=== PATIENT | male | born 1955 | race Caucasian/White ===

== ENCOUNTER 2017-07-13 12:37 | Outpatient (CLI) | payer OTHER ==
[~2017-07-13 12:37] MED LIST: ASPI-1265 PO; ATOR-2 PO; CETI-194 PO; HYDR-569 PO; NITR0.4T51 SL
== END 2017-07-13 23:59 | disposition home or self-care (01) ==
LOC: RAD 12:37
PROVIDERS: ATTEND Nurse Practitioner Family
DX: R07.81 Pleurodynia (principal)
CPT/HCPCS: 71101

== ENCOUNTER 2018-02-08 11:44 | Outpatient (CLI) | payer OTHER ==
[~2018-02-08 11:44] MED LIST changes: +HYDR-4383 PO; -HYDR-569 PO
== END 2018-02-08 23:59 | disposition home or self-care (01) ==
LOC: RAD 11:44
PROVIDERS: ATTEND Nurse Practitioner Family
DX: M47.812 Spondylosis without myelopathy or radiculopathy, cervical region (principal); M48.02 Spinal stenosis, cervical region; G89.29 Other chronic pain; Z87.891 Personal history of nicotine dependence; Z72.89 Other problems related to lifestyle
CPT/HCPCS: 72141

== ENCOUNTER 2018-05-10 07:49 | Outpatient (CLI) | payer OTHER | END 2018-05-10 23:59 | disposition home or self-care (01) | LOC: RAD 07:49 | PROVIDERS: ATTEND Nurse Practitioner Family | DX: Z03.89 Encounter for observation for other suspected diseases and conditions ruled out (principal) | CPT/HCPCS: 71101 ==

== ENCOUNTER 2018-06-06 09:56 | Observation (INO) | payer OTHER ==
[~2018-06-06] VITALS: Ht 172.7 cm; Wt 68.2 kg
[2018-06-06] MEDS ORDERED: aspirin 81mg tab.chew PO ONE (10:20)
[2018-06-06 10:27] LABS: BASOPHILS % (AUTO) 0.5 % (0-1); EOSINOPHILS # (AUTO) 0.3 X10'3 (0-0.9); EOSINOPHILS % (AUTO) 3.9 % (0-6); HEMATOCRIT 46.8 % (42.0-52.0); HEMOGLOBIN 15.8 g/dl (14.0-17.9); LYMPHOCYTES # (AUTO) 1.9 X10'3 (1.1-4.8); LYMPHOCYTES % (AUTO) 29.2 % (21-51); MEAN CORPUSCULAR HEMOGLOBIN 30.4 PG (27.0-31.0); MEAN CORPUSCULAR HGB CONC 33.8 g/dL (33.0-36.5); MEAN CORPUSCULAR VOLUME 90.1 FL (78-98); MONOCYTES # (AUTO) 0.6 X10'3 (0-0.9); MONOCYTES % (AUTO) 9.6 % (2-12); NEUTROPHILS # (AUTO) 3.8 X10'3 (1.8-7.7); NEUTROPHILS % (AUTO) 56.8 % (42-75); PLATELET COUNT 213 X10'3 (140-440); RED CELL DISTRIBUTION WIDTH 12.2 % (11.5-14.5); WHITE BLOOD COUNT 6.6 X10'3 (4.5-11.0)
[2018-06-06 10:38] LABS: ALANINE AMINOTRANSFERASE 37 U/L (12-78); ALBUMIN 4.2 G/DL (3.4-5.0); ALBUMIN/GLOBULIN RATIO 1.2 (1.1-1.5); ALKALINE PHOSPHATASE 70 IU/L (46-116); ANION GAP 10 (8-16); ASPARTATE AMINO TRANSFERASE 37 U/L (10-37); BILIRUBIN,TOTAL 0.5 MG/DL (0.1-1.0); BLOOD UREA NITROGEN 11 MG/DL (7-18); BUN/CREATININE RATIO 14.7 (5.4-32.0); CALCIUM 8.8 MG/DL (8.5-10.1); CHLORIDE 102 MMOL/L (99-107); CREATININE 0.75 MG/DL (0.60-1.10); GLUCOSE 97 MG/DL (70-104); POTASSIUM 3.9 MMOL/L (3.5-5.1); SODIUM 140 MMOL/L (135-145); TOTAL CARBON DIOXIDE 28.3 MMOL/L (24-32); TOTAL PROTEIN 7.6 G/DL (6.4-8.2); eGFR > 90 ML/MIN
[2018-06-06] MEDS ORDERED: ATOR40TA PO (11:10)
[2018-06-06] MEDS ORDERED: LISI2.5T2 PO (11:10)
[2018-06-06] MEDS ORDERED: morphine 4 MG/ML inj SYRINge IV PRN (11:40)
[2018-06-06] MEDS ORDERED: acetaminophen 325mg tablet PO PRN (11:40)
[2018-06-06] MEDS ORDERED: magnesium Cl slow-release 64mg tablet PO PRN (11:40)
[2018-06-06] MEDS ORDERED: magnesium 4gm in 100ml NS 100 ML IV PRN (11:40)
[2018-06-06] MEDS ORDERED: potassium Cl 40MEQ/NS 500ml 500 ML IV PRN ×2 (11:40)
[2018-06-06] MEDS ORDERED: magnesium 2GM in 50ml NS 50 ML IV PRN (11:40)
[2018-06-06] MEDS ORDERED: metoclopramide 5 mg/ml inj IV PRN (11:40)
[2018-06-06] MEDS ORDERED: potassium Cl 20 mEq SR tablet PO PRN ×2 (11:40)
[2018-06-06] MEDS ORDERED: aminophylline 250mg/10ml inj. IV PRN (11:45)
[2018-06-06] MEDS ORDERED: metoprolol tartrate 1mg/ml inj IV PRN (11:45)
[2018-06-06] MEDS ORDERED: nitroGLYCERIN 0.4mg SUBLingual tab SL PRN (11:45)
[2018-06-06] MEDS ORDERED: regadenoson 0.4mg/5ml syringe IV PRN (11:45)
--- NOTE | 2018-06-06 12:04 | NUR ---
[facility] called and states that his stress test is going to have to pushed back till tomorrow because he has drank coffee this morning.
[2018-06-06] MEDS ORDERED: NITR0.4T51 SL (12:19)
[2018-06-06 18:00] VITALS: BP 138/73
--- NOTE | 2018-06-06 18:30 | NUR ---
Assumed care of pt at this time report from Jina RAMÍREZ.
[2018-06-06 22:00] VITALS: BP 139/73
[2018-06-07] VITALS (11 sets, daily range): BP systolic 107–136; BP diastolic 68–76
[2018-06-07 06:54] LABS: ALBUMIN 3.9 G/DL (3.4-5.0); ANION GAP 7 (8-16); BLOOD UREA NITROGEN 13 MG/DL (7-18); BUN/CREATININE RATIO 17.1 (5.4-32.0); CALCIUM 9.1 MG/DL (8.5-10.1); CHLORIDE 102 MMOL/L (99-107); CREATININE 0.76 MG/DL (0.60-1.10); GLUCOSE 87 MG/DL (70-104); MAGNESIUM 1.8 MG/DL (1.5-2.4); POTASSIUM 4.5 MMOL/L (3.5-5.1); SODIUM 138 MMOL/L (135-145); TOTAL CARBON DIOXIDE 29.1 MMOL/L (24-32); eGFR > 90 ML/MIN
[2018-06-07 07:38] LABS: BASOPHILS % (AUTO) 0.3 % (0-1); EOSINOPHILS # (AUTO) 0.3 X10'3 (0-0.9); EOSINOPHILS % (AUTO) 2.8 % (0-6); HEMATOCRIT 46.5 % (42.0-52.0); HEMOGLOBIN 15.8 g/dl (14.0-17.9); LYMPHOCYTES # (AUTO) 1.6 X10'3 (1.1-4.8); LYMPHOCYTES % (AUTO) 17.2 % (21-51); MEAN CORPUSCULAR HEMOGLOBIN 30.3 PG (27.0-31.0); MEAN CORPUSCULAR VOLUME 89.1 FL (78-98); MEAN PLATELET VOLUME 9.2 FL (7.4-10.4); MONOCYTES # (AUTO) 1.1 X10'3 (0-0.9); MONOCYTES % (AUTO) 12.4 % (2-12); NEUTROPHILS # (AUTO) 6.1 X10'3 (1.8-7.7); NEUTROPHILS % (AUTO) 67.3 % (42-75); PLATELET COUNT 188 X10'3 (140-440); RED BLOOD COUNT 5.21 X10'6 (4.70-6.10); RED CELL DISTRIBUTION WIDTH 12.9 % (11.5-14.5)
[2018-06-07] MEDS ORDERED: K and/or MAG REPLACEMENT MC SCH (08:00)
[2018-06-07] MEDS ORDERED: aminophylline inj. 10 ML IV ONE (09:16)
[2018-06-07] MEDS ORDERED: regadenoson 0.4mg/5ml syringe IV ONE (09:16)
[2018-06-07] MEDS ORDERED: lisinopril 2.5mg tablet PO SCH (10:35)
[2018-06-07] MEDS ORDERED: nitroGLYCERIN 0.4mg SUBLingual tab SL PRN (10:35)
[2018-06-07] MEDS ORDERED: PANT40TA4 PO (11:27)
[2018-06-07] MEDS ORDERED: NITR0.4T51 SL (11:27)
[2018-06-07] MEDS ORDERED: CARV3.12 PO (11:27)
[2018-06-07] MEDS ORDERED: atorvastatin 20mg tablet PO SCH (21:00)
[2018-06-07] MEDS ORDERED: aspirin 81mg tab.chew PO SCH (21:00)
== END 2018-06-07 12:45 | disposition home or self-care (01) ==
LOC: ER 09:57 → ED HOLD 11:36 → EDBEDREQ 15:34 → ORTHO 4S 18:00
PROVIDERS: ADMIT Internal Medicine; ATTEND Internal Medicine
DX: R07.89 Other chest pain (principal); E78.00 Pure hypercholesterolemia, unspecified; I25.10 Atherosclerotic heart disease of native coronary artery without angina pectoris; E78.5 Hyperlipidemia, unspecified; I10 Essential (primary) hypertension; Z83.3 Family history of diabetes mellitus; Z95.5 Presence of coronary angioplasty implant and graft
CPT/HCPCS: 36415; 71045; 78452; 80048; 80053; 83735; 83880; 84484; 85025; 87070; 93005; 93017; 96374; 99284; A9500; G0378; J0280

== ENCOUNTER 2018-06-10 11:07 | Outpatient (CLI) | payer OTHER ==
[~2018-06-10 11:07] MED LIST changes: -ATOR-2 PO; +ATOR40TA PO; +CARV3.12 PO; -CETI-194 PO; +LISI2.5T2 PO; +PANT40TA4 PO
== END 2018-06-10 23:59 | disposition home or self-care (01) ==
LOC: VAS 11:07
PROVIDERS: ATTEND Internal Medicine Interventional Cardiology
DX: I65.23 Occlusion and stenosis of bilateral carotid arteries (principal); R01.1 Cardiac murmur, unspecified
CPT/HCPCS: 93880

== ENCOUNTER → 2018-06-14 | Outpatient (CLI) | payer OTHER | END | disposition home or self-care (01) | LOC: CARD DIAG 07:37 | PROVIDERS: ATTEND Internal Medicine Interventional Cardiology | DX: I08.1 Rheumatic disorders of both mitral and tricuspid valves (principal); Z79.82 Long term (current) use of aspirin; Z87.891 Personal history of nicotine dependence | CPT/HCPCS: 93306 ==

== ENCOUNTER 2018-07-21 14:01 | Day surgery (SDC) | payer OTHER ==
[2018-07-20 07:59] LABS: BASOPHILS % (AUTO) 0.6 % (0-1); EOSINOPHILS # (AUTO) 0.3 X10'3 (0-0.9); EOSINOPHILS % (AUTO) 4.3 % (0-6); LYMPHOCYTES # (AUTO) 1.8 X10'3 (1.1-4.8); LYMPHOCYTES % (AUTO) 24.6 % (21-51); MEAN CORPUSCULAR HEMOGLOBIN 30.8 PG (27.0-31.0); MEAN CORPUSCULAR HGB CONC 34.8 g/dL (33.0-36.5); MEAN CORPUSCULAR VOLUME 88.5 FL (78-98); MEAN PLATELET VOLUME 8.8 FL (7.4-10.4); MONOCYTES % (AUTO) 13.4 % (2-12); NEUTROPHILS # (AUTO) 4.2 X10'3 (1.8-7.7); NEUTROPHILS % (AUTO) 57.1 % (42-75); PRE OP HEMOGLOBIN 15.7 g/dL (14.0-17.9); PRE OP PLATELET COUNT 209 X10'3 (140-440); RED BLOOD COUNT 5.09 X10'6 (4.70-6.10); RED CELL DISTRIBUTION WIDTH 12.9 % (11.5-14.5)
[2018-07-20 08:11] LABS: BLOOD UREA NITROGEN 9 MG/DL (7-18); BUN/CREATININE RATIO 11.8 (5.4-32.0); CALCIUM 8.9 MG/DL (8.5-10.1); CHLORIDE 103 MMOL/L (99-107); CREATININE 0.76 MG/DL (0.60-1.10); PRE OP ANION GAP 5 (8-16); PRE OP GLUCOSE 100 MG/DL (70-104); PRE OP POTASSIUM 4.2 MMOL/L (3.4-5.1); PRE OP SODIUM 138 MMOL/L (135-145); TOTAL CARBON DIOXIDE 30.4 MMOL/L (24-32); eGFR > 90 ML/MIN
[2018-07-20 08:18] LABS: PRE OP PROTIME 9.9 SECONDS (9.0-12.0)
[2018-07-21] VITALS (8 sets, daily range): BP systolic 96–131; BP diastolic 57–75
[~2018-07-21] VITALS: Ht 172.7 cm; Wt 66.2 kg
[2018-07-21] MEDS ORDERED: ATOR80TA PO (14:19)
[2018-07-21] MEDS ORDERED: normal saline 1,000 ML IV SCH (14:20)
[2018-07-21] MEDS ORDERED: LORazepam 0.5 MG tablet PO PRN (14:20)
[2018-07-21] MEDS ORDERED: diphenhydrAMINE 25mg capsule PO PRN (14:20)
[2018-07-21] MEDS ORDERED: NITR0.4T51 SL (14:24)
[2018-07-21] MEDS ORDERED: EZET10TA14 PO (14:24)
[2018-07-21] MEDS ORDERED: PANT-47 PO (14:24)
[2018-07-21] MEDS ORDERED: MECL-111 PO (14:24)
[2018-07-21] MEDS ORDERED: CARV3.12 PO (14:24)
[2018-07-21] MEDS ORDERED: HYDR-4353 PO (14:24)
[2018-07-21] MEDS ORDERED: CETI-194 PO (14:24)
[2018-07-21] MEDS ORDERED: LIDOcaine/PRILOcaine 5gm cream TP ONE (14:30)
[2018-07-21] MEDS ORDERED: fentaNYL/PF 50MCG/1 ML 2ML syringe ONE (16:29)
[2018-07-21] MEDS ORDERED: midazolam 2 mg/2 ml injection ONE ×2 (16:29→17:03)
[2018-07-21] MEDS ORDERED: LIDOcaine 1% (10mg/ml)w/preservative injection 20ml MDV ONE (16:29)
[2018-07-21] MEDS ORDERED: iohexol 350MG/ML 100ml bottle IV ONE (16:30)
[2018-07-21] MEDS ORDERED: verapamil 2.5 mg/ml inj IV ONE (16:58)
[2018-07-21] MEDS ORDERED: heparin 1,000unit/ml 10ml vial 10 ML ONE (16:58)
[2018-07-21] MEDS ORDERED: nitroGLYCERIN-Tridil 50MG/D5W 250 ML IV ONE (16:58)
[2018-07-21] MEDS ORDERED: OXAZEpam 15mg capsule PO PRN (18:00)
[2018-07-21] MEDS ORDERED: proCHLORperazine 10 MG/2 ml inj IV PRN (18:00)
[2018-07-21] MEDS ORDERED: ondansetron/PF 4mg/2ml inj IV PRN (18:00)
== END 2018-07-21 19:05 | disposition home or self-care (01) ==
LOC: SSTAY O 14:01
PROVIDERS: ATTEND Internal Medicine Interventional Cardiology
DX: I25.10 Atherosclerotic heart disease of native coronary artery without angina pectoris (principal)
CPT/HCPCS: 36415; 80048; 85025; 85610; 85730; 93005; 93458; 99152; 99153; J1644; J2001; J2250; J3010; J7030; Q0163; Q9967; A4620; C1769; J3490

== ENCOUNTER 2018-12-23 07:59 | Outpatient (CLI) | payer OTHER ==
[~2018-12-23 07:59] MED LIST changes: -ATOR40TA PO; +ATOR80TA PO; +CETI-194 PO; +EZET10TA21 PO; +HYDR-4353 PO; -HYDR-4383 PO; +MECL-111 PO; +PANT-47 PO; -PANT40TA4 PO
[2018-12-23 08:46] LABS: BASOPHILS % (AUTO) 0.7 % (0-1); EOSINOPHILS # (AUTO) 0.2 X10'3 (0-0.9); EOSINOPHILS % (AUTO) 3.5 % (0-6); HEMATOCRIT 47.2 % (42.0-52.0); HEMOGLOBIN 15.9 g/dl (14.0-17.9); LYMPHOCYTES # (AUTO) 1.8 X10'3 (1.1-4.8); LYMPHOCYTES % (AUTO) 27.8 % (21-51); MEAN CORPUSCULAR HEMOGLOBIN 30.5 PG (27.0-31.0); MEAN CORPUSCULAR HGB CONC 33.7 g/dL (33.0-36.5); MEAN CORPUSCULAR VOLUME 90.5 FL (78-98); MEAN PLATELET VOLUME 8.4 FL (7.4-10.4); MONOCYTES # (AUTO) 0.8 X10'3 (0-0.9); MONOCYTES % (AUTO) 12.8 % (2-12); NEUTROPHILS # (AUTO) 3.7 X10'3 (1.8-7.7); NEUTROPHILS % (AUTO) 55.2 % (42-75); PLATELET COUNT 223 X10'3 (140-440); RED BLOOD COUNT 5.22 X10'6 (4.70-6.10); RED CELL DISTRIBUTION WIDTH 13.1 % (11.5-14.5); WHITE BLOOD COUNT 6.6 X10'3 (4.5-11.0)
[2018-12-23 09:14] LABS: ALANINE AMINOTRANSFERASE 43 U/L (12-78); ALBUMIN 4.1 G/DL (3.4-5.0); ALBUMIN/GLOBULIN RATIO 1.2 (1.1-1.5); ALKALINE PHOSPHATASE 52 IU/L (46-116); ANION GAP 7 (8-16); ASPARTATE AMINO TRANSFERASE 34 U/L (10-37); BILIRUBIN,TOTAL 0.7 MG/DL (0.1-1.0); BLOOD UREA NITROGEN 11 MG/DL (7-18); BUN/CREATININE RATIO 14.3 (5.4-32.0); CALCIUM 8.8 MG/DL (8.5-10.1); CHLORIDE 105 MMOL/L (99-107); CHOL/HDL RATIO 2.6 (0.00-4.99); CHOLESTEROL 146 MG/DL (0-200); CREATININE 0.77 MG/DL (0.60-1.10); GLUCOSE 87 MG/DL (70-104); HDL CHOLESTEROL 56 MG/DL (35-60); LDL CHOLESTEROL 80 MG/DL (50-100); POTASSIUM 4.5 MMOL/L (3.5-5.1); SODIUM 142 MMOL/L (135-145); TOTAL CARBON DIOXIDE 29.9 MMOL/L (24-32); TOTAL PROTEIN 7.6 G/DL (6.4-8.2); TRIGLYCERIDES 42 MG/DL (20-135); eGFR > 90 ML/MIN
[2018-12-24 08:18] LABS: PSA, ULTRASENSITIVE W/O SERIAL 1.34 ng/mL (0.000-4.000)
[2018-12-24 11:16] LABS: MICROALB/CRT, RATIO 4.3 mg/g creat (0.0-30.0)
== END 2018-12-23 23:59 | disposition home or self-care (01) ==
LOC: LAB 07:59
PROVIDERS: ATTEND Physician Assistant
DX: Z12.5 Encounter for screening for malignant neoplasm of prostate (principal); E78.5 Hyperlipidemia, unspecified; I10 Essential (primary) hypertension; M50.90 Cervical disc disorder, unspecified, unspecified cervical region; M54.2 Cervicalgia; Z87.891 Personal history of nicotine dependence; Z72.89 Other problems related to lifestyle
CPT/HCPCS: 36415; 80053; 80061; 82043; 82570; 84153; 84439; 84443; 85025

== ENCOUNTER 2019-12-04 08:01 | Outpatient (CLI) | payer BC ==
[~2019-12-04 08:01] MED LIST changes: -EZET10TA21 PO; +EZET10TA6 PO; -MECL-111 PO; +MECL-159 PO
[2019-12-04 08:41] LABS: ALANINE AMINOTRANSFERASE 35 U/L (12-78); ALBUMIN/GLOBULIN RATIO 1.2 (1.1-1.5); ALKALINE PHOSPHATASE 53 IU/L (46-116); ANION GAP 7 (8-16); ASPARTATE AMINO TRANSFERASE 29 U/L (10-37); BILIRUBIN,TOTAL 0.9 MG/DL (0.1-1.0); BLOOD UREA NITROGEN 12 MG/DL (7-18); BUN/CREATININE RATIO 14.8 (5.4-32.0); CALCIUM 8.3 MG/DL (8.5-10.1); CHLORIDE 105 MMOL/L (99-107); CHOL/HDL RATIO 2.4 (0.00-4.99); CHOLESTEROL 132 MG/DL (0-200); CREATININE 0.81 MG/DL (0.60-1.10); GLUCOSE 97 MG/DL (70-104); HDL CHOLESTEROL 55 MG/DL (35-60); LDL CHOLESTEROL 70 MG/DL (50-100); POTASSIUM 4.3 MMOL/L (3.5-5.1); SODIUM 140 MMOL/L (135-145); TOTAL CARBON DIOXIDE 28.1 MMOL/L (24-32); TOTAL PROTEIN 7.3 G/DL (6.4-8.2); TRIGLYCERIDES 33 MG/DL (20-135); eGFR > 90 ML/MIN
== END 2019-12-04 23:59 | disposition home or self-care (01) ==
LOC: LAB 08:01
PROVIDERS: ATTEND Internal Medicine Interventional Cardiology
DX: E78.49 Other hyperlipidemia (principal); R06.02 Shortness of breath
CPT/HCPCS: 36415; 80053; 80061

== ENCOUNTER → 2020-01-05 | Outpatient (CLI) | payer BC ==
[2020-01-05 09:56] LABS: BASOPHILS % (AUTO) 0.7 % (0-1); EOSINOPHILS # (AUTO) 0.2 X10'3 (0-0.9); EOSINOPHILS % (AUTO) 3.3 % (0-6); HEMATOCRIT 43.7 % (42.0-52.0); HEMOGLOBIN 14.8 g/dl (14.0-17.9); LYMPHOCYTES # (AUTO) 1.3 X10'3 (1.1-4.8); LYMPHOCYTES % (AUTO) 21.8 % (21-51); MEAN CORPUSCULAR HEMOGLOBIN 30.3 PG (27.0-31.0); MEAN CORPUSCULAR HGB CONC 33.8 g/dL (33.0-36.5); MEAN CORPUSCULAR VOLUME 89.5 FL (78-98); MEAN PLATELET VOLUME 8.7 FL (7.4-10.4); MONOCYTES # (AUTO) 0.6 X10'3 (0-0.9); MONOCYTES % (AUTO) 10.7 % (2-12); NEUTROPHILS # (AUTO) 3.8 X10'3 (1.8-7.7); NEUTROPHILS % (AUTO) 63.5 % (42-75); PLATELET COUNT 222 X10'3 (140-440); RED BLOOD COUNT 4.88 X10'6 (4.70-6.10); RED CELL DISTRIBUTION WIDTH 12.7 % (11.5-14.5)
[2020-01-05 10:33] LABS: ALANINE AMINOTRANSFERASE 32 U/L (12-78); ALBUMIN 3.9 G/DL (3.4-5.0); ALBUMIN/GLOBULIN RATIO 1.2 (1.1-1.5); ALKALINE PHOSPHATASE 54 IU/L (46-116); ANION GAP 7 (8-16); ASPARTATE AMINO TRANSFERASE 27 U/L (10-37); BILIRUBIN,TOTAL 0.6 MG/DL (0.1-1.0); BLOOD UREA NITROGEN 10 MG/DL (7-18); CALCIUM 8.6 MG/DL (8.5-10.1); CHLORIDE 102 MMOL/L (99-107); CREATININE 0.91 MG/DL (0.60-1.10); GLUCOSE 141 MG/DL (70-104); POTASSIUM 4.1 MMOL/L (3.5-5.1); SODIUM 137 MMOL/L (135-145); TOTAL CARBON DIOXIDE 27.7 MMOL/L (24-32); TOTAL PROTEIN 7.1 G/DL (6.4-8.2); eGFR 84 ML/MIN
[2020-01-06 13:29] LABS: PSA, ULTRASENSITIVE W/O SERIAL 1.16 ng/mL (0.000-4.000)
== END | disposition home or self-care (01) ==
LOC: LAB 08:05
PROVIDERS: ATTEND Physician Assistant
DX: I10 Essential (primary) hypertension (principal); E78.5 Hyperlipidemia, unspecified; K64.4 Residual hemorrhoidal skin tags; Z12.5 Encounter for screening for malignant neoplasm of prostate
CPT/HCPCS: 36415; 80053; 82043; 82570; 84153; 84439; 84443; 85025

== ENCOUNTER 2020-10-30 06:08 | Outpatient (CLI) | payer BC ==
[2020-10-30 08:34] LABS: BASOPHILS % (AUTO) 0.4 % (0-1); EOSINOPHILS # (AUTO) 0.2 X10'3 (0-0.9); HEMATOCRIT 46.3 % (42.0-52.0); LYMPHOCYTES # (AUTO) 1.7 X10'3 (1.1-4.8); LYMPHOCYTES % (AUTO) 20.6 % (21-51); MEAN CORPUSCULAR HEMOGLOBIN 30.2 PG (27.0-31.0); MEAN CORPUSCULAR HGB CONC 34.6 g/dL (33.0-36.5); MEAN CORPUSCULAR VOLUME 87.2 FL (78-98); MEAN PLATELET VOLUME 8.6 FL (7.4-10.4); MONOCYTES % (AUTO) 12.3 % (2-12); NEUTROPHILS # (AUTO) 5.4 X10'3 (1.8-7.7); NEUTROPHILS % (AUTO) 64.7 % (42-75); PLATELET COUNT 211 X10'3 (140-440); RED BLOOD COUNT 5.31 X10'6 (4.70-6.10); RED CELL DISTRIBUTION WIDTH 12.6 % (11.5-14.5); WHITE BLOOD COUNT 8.4 X10'3 (4.5-11.0)
[2020-10-30 09:29] LABS: ALANINE AMINOTRANSFERASE 34 U/L (12-78); ALBUMIN/GLOBULIN RATIO 1.1 (1.1-1.5); ALKALINE PHOSPHATASE 61 IU/L (46-116); ANION GAP 14 (8-16); ASPARTATE AMINO TRANSFERASE 24 U/L (10-37); BILIRUBIN,TOTAL 0.9 MG/DL (0.1-1.0); BLOOD UREA NITROGEN 12 MG/DL (7-18); BUN/CREATININE RATIO 14.8 (5.4-32.0); CALCIUM 8.6 MG/DL (8.5-10.1); CHLORIDE 101 MMOL/L (99-107); CHOL/HDL RATIO 3.2 (0.00-4.99); CHOLESTEROL 162 MG/DL (0-200); CREATININE 0.81 MG/DL (0.60-1.10); GLUCOSE 105 MG/DL (70-104); HDL CHOLESTEROL 51 MG/DL (35-60); LDL CHOLESTEROL 99 MG/DL (50-100); SODIUM 140 MMOL/L (135-145); TOTAL CARBON DIOXIDE 24.6 MMOL/L (24-32); TOTAL PROTEIN 7.6 G/DL (6.4-8.2); TRIGLYCERIDES 86 MG/DL (20-135); eGFR > 90 ML/MIN
[2020-10-31 19:31] LABS: MICROALB/CRT, RATIO 4 mg/g creat (0-29)
== END 2020-10-30 23:59 | disposition home or self-care (01) ==
LOC: LAB 06:08
PROVIDERS: ATTEND Physician Assistant
DX: E78.5 Hyperlipidemia, unspecified (principal); R53.83 Other fatigue; I10 Essential (primary) hypertension; R42 Dizziness and giddiness; G47.00 Insomnia, unspecified
CPT/HCPCS: 36415; 80053; 80061; 82043; 82570; 84402; 84403; 84439; 84443; 85025

== ENCOUNTER → 2020-11-15 | Outpatient (CLI) | payer BC | END | disposition home or self-care (01) | LOC: CARD DIAG 09:46 | PROVIDERS: ATTEND Physician Assistant | DX: I08.1 Rheumatic disorders of both mitral and tricuspid valves (principal) | CPT/HCPCS: 93306 ==

== ENCOUNTER 2021-01-07 09:15 | Outpatient (CLI) | payer BC ==
[~2021-01-07 09:15] MED LIST changes: +LISI2.5T14 PO; -LISI2.5T2 PO
== END 2021-01-07 23:59 | disposition home or self-care (01) ==
LOC: LAB 09:15
PROVIDERS: ATTEND Physician Assistant
DX: Z12.5 Encounter for screening for malignant neoplasm of prostate (principal); M19.012 Primary osteoarthritis, left shoulder
CPT/HCPCS: 36415; 73030; 84153

== ENCOUNTER 2021-01-15 09:38 | Outpatient (CLI) | payer BC | END 2021-01-15 23:59 | disposition home or self-care (01) | LOC: RAD 09:38 | PROVIDERS: ATTEND Family Medicine | DX: M75.102 Unspecified rotator cuff tear or rupture of left shoulder, not specified as traumatic (principal); M19.012 Primary osteoarthritis, left shoulder; M25.619 Stiffness of unspecified shoulder, not elsewhere classified | CPT/HCPCS: 73221 ==

== ENCOUNTER 2021-04-28 05:58 | Day surgery (SDC) | payer BC ==
[2021-04-22 12:16] LABS: BASOPHILS % (AUTO) 0.7 % (0-1); EOSINOPHILS # (AUTO) 0.3 X10'3 (0-0.9); EOSINOPHILS % (AUTO) 4.6 % (0-6); LYMPHOCYTES # (AUTO) 1.7 X10'3 (1.1-4.8); LYMPHOCYTES % (AUTO) 24.7 % (21-51); MEAN CORPUSCULAR HEMOGLOBIN 30.5 PG (27.0-31.0); MEAN CORPUSCULAR HGB CONC 34.4 g/dL (33.0-36.5); MEAN CORPUSCULAR VOLUME 88.4 FL (78-98); MEAN PLATELET VOLUME 8.5 FL (7.4-10.4); MONOCYTES # (AUTO) 0.8 X10'3 (0-0.9); MONOCYTES % (AUTO) 11.8 % (2-12); NEUTROPHILS # (AUTO) 3.9 X10'3 (1.8-7.7); NEUTROPHILS % (AUTO) 58.2 % (42-75); PRE OP HEMATOCRIT 44.9 % (42.0-52.0); PRE OP HEMOGLOBIN 15.5 g/dL (14.0-17.9); PRE OP PLATELET COUNT 243 X10'3 (140-440); RED BLOOD COUNT 5.08 X10'6 (4.70-6.10); RED CELL DISTRIBUTION WIDTH 12.9 % (11.5-14.5)
[2021-04-22 13:22] LABS: ALBUMIN/GLOBULIN RATIO 1.1 (1.1-1.5); ALKALINE PHOSPHATASE 61 IU/L (46-116); BLOOD UREA NITROGEN 14 MG/DL (7-18); BUN/CREATININE RATIO 16.9 (5.4-32.0); CALCIUM 9.2 MG/DL (8.5-10.1); CHLORIDE 102 MMOL/L (99-107); CREATININE 0.83 MG/DL (0.60-1.10); PRE OP ALT 35 U/L (30-65); PRE OP ANION GAP 8 (8-16); PRE OP AST 28 U/L (10-37); PRE OP BILIRUB, TOTAL 0.6 MG/DL (0.0-1.0); PRE OP GLUCOSE 130 MG/DL (70-104); PRE OP POTASSIUM 4.3 MMOL/L (3.4-5.1); PRE OP SODIUM 140 MMOL/L (135-145); TOTAL CARBON DIOXIDE 30.1 MMOL/L (24-32); TOTAL PROTEIN 7.5 G/DL (6.4-8.2); eGFR > 90 ML/MIN
[2021-04-28] VITALS (10 sets, daily range): BP systolic 129–155; BP diastolic 74–91
[~2021-04-28] VITALS: Ht 175.3 cm; Wt 70.3 kg
[~2021-04-28 05:58] MED LIST changes: -CARV3.12 PO; -CETI-194 PO; -EZET10TA6 PO; -MECL-159 PO; -NITR0.4T51 SL; -PANT-47 PO; +ZET10T PO; +cefazolin/dext.iso 2gm/50ml IV ONE; +famotidine 20mg tablet PO ONE; +ringers solution, lacted 1,000 ML IV SCH
[2021-04-28] MEDS ORDERED: BUPIVAcaine/PF 2.5 mg/ml (0.25%) 30ml vial ONE (07:46)
[2021-04-28] MEDS ORDERED: midazolam 1 mg/ML 2ml injection ONE (08:33)
[2021-04-28] MEDS ORDERED: fentaNYL/PF 50MCG/1 ML 2ML syringe ONE ×2 (08:33→10:02)
[2021-04-28] MEDS ORDERED: propofol inj 20 ML IV ONE (08:37)
[2021-04-28] MEDS ORDERED: LIDOcaine 1%/PF 5ML 10 MG/ML VIAL ONE (08:37)
[2021-04-28] MEDS ORDERED: ROPIVAcaine 0.5% (5mg/ml) 30ml vial ONE (08:37)
[2021-04-28] MEDS ORDERED: sevoflurane 250ml liquid IH ONE (08:38)
[2021-04-28] MEDS ORDERED: dexamethasone sod phosphate 4mg/ml inj. ONE (09:13)
[2021-04-28] MEDS ORDERED: meperidine/PF 25mg/ml syringe IV PRN ×3 (09:50)
[2021-04-28] MEDS ORDERED: ringers solution, lacted 1,000 ML IV SCH (09:50)
[2021-04-28] MEDS ORDERED: ROPIVAcaine 0.2%/PF PUMP/bolus 545 ML INTERSCALE SCH (09:50)
[2021-04-28] MEDS ORDERED: proCHLORperazine 10 MG/2 ml inj IV PRN (09:50)
[2021-04-28] MEDS ORDERED: ondansetron/PF 4mg/2ml inj IV PRN (09:50)
[2021-04-28] MEDS ORDERED: morphine 2 MG/ML inj. syringe IV PRN (09:50)
[2021-04-28] MEDS ORDERED: morphine 4 MG/ML inj SYRINge IV PRN (09:50)
[2021-04-28] MEDS ORDERED: ROPIVAcaine 0.2% (10 MG/5 ML) BOLUS INJECTION INTERSCALE PRN (09:50)
[2021-04-28] MEDS ORDERED: ondansetron/PF 4mg/2ml inj ONE (10:06)
--- NOTE | 2021-04-28 10:45 | NUR ---
Received from OR via [facility], accompanied by Anesthesiologist DR. BRAXTON and report given by Anesthesiologist. PATIENT WAKING UP, NO S/S OF PAIN, V/S WNL, CSM INTACT, SCD ON, PIV 20G TO RUE, LEFT SHOULDER-WRAP WITH POWDER PAC PRESENT, ARM IN SLING, ABLE TO MOVE FINGERS, SENSATION INTACT.
[2021-04-28] MEDS ORDERED: HYDROcodone/acetaminophen 10/325mg tab PO PRN (10:55)
--- NOTE | 2021-04-28 12:05 | NUR ---
ALL DISCHARGE CRITERIA HAS BEEN MET. VSS, NO PAIN, ON-Q ATTACHED AND STARTED AT 2ML/HR-PT EDUCTED REGARDING USE, LEFT SHOULDER WRAP AND POWDER PAC IN PLACE-DRSG CDI, NO CHANGES IN SENSATION/CSM INTACT, ABLE TO SAFELY AMBULATE AND TRANSFER SELF. IV TAKEN OUT WITHOUT ANY COMPLICATIONS. ALL DISCHARGE INSTRUCTIONS COVERED WITH PATIENT AND ALL QUESTIONS ANSWERED. PATIENT TAKEN OUT VIA WHEELCHAIR TO PERSONAL VEHICLE WHERE FAMILY/FRIEND DROVE PATIENT HOME.
== END 2021-04-28 12:05 | disposition home or self-care (01) ==
LOC: PAS 05:58 → EDSTATUS 08:45 → PAS 12:05
PROVIDERS: ATTEND Orthopaedic Surgery
DX: S46.012A Strain of muscle(s) and tendon(s) of the rotator cuff of left shoulder, initial encounter (principal); M75.52 Bursitis of left shoulder; I10 Essential (primary) hypertension; E78.00 Pure hypercholesterolemia, unspecified; I25.10 Atherosclerotic heart disease of native coronary artery without angina pectoris; M19.012 Primary osteoarthritis, left shoulder; Z87.891 Personal history of nicotine dependence; Z72.89 Other problems related to lifestyle; Z79.899 Other long term (current) drug therapy; Z79.82 Long term (current) use of aspirin; Z95.5 Presence of coronary angioplasty implant and graft; Z20.822 Contact with and (suspected) exposure to COVID-19; X58.XXXA Exposure to other specified factors, initial encounter; Y93.89 Activity, other specified; Y92.89 Other specified places as the place of occurrence of the external cause; Y99.8 Other external cause status
CPT/HCPCS: 29826; 29827; 36415; 64416; 76942; 80053; 82948; 85025; 93005; C1713; J0690; J1100; J2250; J2405; J2704; J2795; J3010; J3490; J7120; U0003; U0005; Z7506; Z7508; Z7512; A4565; A4618; A6449; A7000

== ENCOUNTER 2021-11-28 08:26 | Outpatient (CLI) | payer BC ==
[~2021-11-28 08:26] MED LIST changes: -cefazolin/dext.iso 2gm/50ml IV ONE; -famotidine 20mg tablet PO ONE; -ringers solution, lacted 1,000 ML IV SCH
[2021-11-28 09:01] LABS: BASOPHILS # (AUTO) 0.1 X10'3 (0-0.2); BASOPHILS % (AUTO) 0.6 % (0-1); EOSINOPHILS # (AUTO) 0.2 X10'3 (0-0.9); HEMATOCRIT 46.8 % (42.0-52.0); HEMOGLOBIN 15.8 g/dl (14.0-17.9); LYMPHOCYTES # (AUTO) 1.9 X10'3 (1.1-4.8); LYMPHOCYTES % (AUTO) 22.8 % (21-51); MEAN CORPUSCULAR HGB CONC 33.8 g/dL (33.0-36.5); MEAN PLATELET VOLUME 8.4 FL (7.4-10.4); MONOCYTES % (AUTO) 11.5 % (2-12); NEUTROPHILS # (AUTO) 5.3 X10'3 (1.8-7.7); NEUTROPHILS % (AUTO) 63.1 % (42-75); PLATELET COUNT 240 X10'3 (140-440); RED BLOOD COUNT 5.25 X10'6 (4.70-6.10); RED CELL DISTRIBUTION WIDTH 13.2 % (11.5-14.5); WHITE BLOOD COUNT 8.4 X10'3 (4.5-11.0)
[2021-11-28 09:22] LABS: ANION GAP 9 (8-16); BLOOD UREA NITROGEN 15 MG/DL (7-18); BUN/CREATININE RATIO 18.3 (5.4-32.0); CHLORIDE 102 MMOL/L (99-107); CREATININE 0.82 MG/DL (0.60-1.10); GLUCOSE 90 MG/DL (70-104); POTASSIUM 4.2 MMOL/L (3.5-5.1); SODIUM 140 MMOL/L (135-145); TOTAL CARBON DIOXIDE 29.3 MMOL/L (24-32)
[2021-11-28 09:23] LABS: ALANINE AMINOTRANSFERASE 33 U/L (12-78); ALBUMIN 4.1 G/DL (3.4-5.0); ALBUMIN/GLOBULIN RATIO 1.1 (1.1-1.5); ALKALINE PHOSPHATASE 65 IU/L (46-116); ASPARTATE AMINO TRANSFERASE 22 U/L (10-37); BILIRUBIN,TOTAL 0.7 MG/DL (0.1-1.0); CALCIUM 8.8 MG/DL (8.5-10.1); CHOL/HDL RATIO 2.8 (0.00-4.99); CHOLESTEROL 158 MG/DL (0-200); HDL CHOLESTEROL 57 MG/DL (35-60); LDL CHOLESTEROL 85 MG/DL (50-100); TOTAL PROTEIN 7.7 G/DL (6.4-8.2); TRIGLYCERIDES 33 MG/DL (20-135); eGFR > 90 ML/MIN
[2021-11-29 09:29] LABS: PSA, ULTRASENSITIVE W/O SERIAL 1.02 ng/mL (0.000-4.000)
== END 2021-11-28 23:59 | disposition home or self-care (01) ==
LOC: LAB 08:26
PROVIDERS: ATTEND Physician Assistant
DX: Z12.5 Encounter for screening for malignant neoplasm of prostate (principal); E78.5 Hyperlipidemia, unspecified; I10 Essential (primary) hypertension; I25.10 Atherosclerotic heart disease of native coronary artery without angina pectoris; R53.83 Other fatigue
CPT/HCPCS: 36415; 80053; 80061; 82306; 84153; 84410; 84439; 84443; 85025

== ENCOUNTER 2022-07-10 08:18 | Outpatient (CLI) | payer SELFPAY | END 2022-07-10 23:59 | disposition home or self-care (01) | LOC: VAS 08:18 | DX: Z13.6 Encounter for screening for cardiovascular disorders (principal) ==

== ENCOUNTER 2022-07-22 08:05 | Outpatient (CLI) | payer BC ==
[2022-07-22 08:42] LABS: BASOPHILS % (AUTO) 0.4 % (0-1); EOSINOPHILS # (AUTO) 0.4 X10'3 (0-0.9); EOSINOPHILS % (AUTO) 4.5 % (0-6); HEMATOCRIT 46.5 % (42.0-52.0); HEMOGLOBIN 15.7 g/dl (14.0-17.9); LYMPHOCYTES % (AUTO) 23.3 % (21-51); MEAN CORPUSCULAR HGB CONC 33.8 g/dL (33.0-36.5); MEAN CORPUSCULAR VOLUME 88.8 FL (78-98); MEAN PLATELET VOLUME 8.5 FL (7.4-10.4); MONOCYTES % (AUTO) 11.9 % (2-12); NEUTROPHILS # (AUTO) 5.2 X10'3 (1.8-7.7); NEUTROPHILS % (AUTO) 59.9 % (42-75); PLATELET COUNT 208 X10'3 (140-440); RED BLOOD COUNT 5.23 X10'6 (4.70-6.10); RED CELL DISTRIBUTION WIDTH 13.1 % (11.5-14.5); WHITE BLOOD COUNT 8.7 X10'3 (4.5-11.0)
[2022-07-22 08:54] LABS: ALANINE AMINOTRANSFERASE 34 U/L (12-78); ALBUMIN 4.1 G/DL (3.4-5.0); ALBUMIN/GLOBULIN RATIO 1.3 (1.1-1.5); ALKALINE PHOSPHATASE 64 IU/L (46-116); ANION GAP 9 (8-16); ASPARTATE AMINO TRANSFERASE 30 U/L (10-37); BLOOD UREA NITROGEN 17 MG/DL (7-18); BUN/CREATININE RATIO 20.5 (10.0-20.0); CALCIUM 8.9 MG/DL (8.5-10.1); CHLORIDE 101 MMOL/L (99-107); CHOLESTEROL 166 MG/DL (0-200); CREATININE 0.83 MG/DL (0.60-1.10); GLUCOSE 100 MG/DL (70-104); HDL CHOLESTEROL 55 MG/DL (35-60); LDL CHOLESTEROL 96 MG/DL (50-100); POTASSIUM 4.6 MMOL/L (3.5-5.1); SODIUM 138 MMOL/L (135-145); TOTAL CARBON DIOXIDE 27.9 MMOL/L (24-32); TOTAL PROTEIN 7.3 G/DL (6.4-8.2); TRIGLYCERIDES 50 MG/DL (20-135); eGFR > 90 ML/MIN
== END 2022-07-22 23:59 | disposition home or self-care (01) ==
LOC: CARD DIAG 08:05
PROVIDERS: ATTEND Internal Medicine Interventional Cardiology
DX: I25.118 Atherosclerotic heart disease of native coronary artery with other forms of angina pectoris (principal); I08.3 Combined rheumatic disorders of mitral, aortic and tricuspid valves; R06.02 Shortness of breath; E78.49 Other hyperlipidemia; I10 Essential (primary) hypertension
CPT/HCPCS: 36415; 80053; 80061; 84153; 85025; 93306

== ENCOUNTER 2022-07-29 08:50 | Outpatient (CLI) | payer BC ==
[~2022-07-29] VITALS: Ht 175.3 cm; Wt 70.0 kg
[2022-07-29] VITALS (7 sets, daily range): BP systolic 129–151; BP diastolic 69–76
[2022-07-29] MEDS ORDERED: regadenoson 0.4mg/5ml syringe IV ONE (09:50)
[2022-07-29] MEDS ORDERED: aminophylline 250mg/10ml inj. IV PRN (09:50)
[2022-07-29] MEDS ORDERED: nitroGLYCERIN 0.4mg SUBLingual tab SL PRN (09:50)
[2022-07-29] MEDS ORDERED: normal saline 500ml IV soln 500 ML IV ONE (09:50)
== END 2022-07-29 23:59 | disposition home or self-care (01) ==
LOC: RAD 08:50
PROVIDERS: ATTEND Internal Medicine Interventional Cardiology
DX: I25.118 Atherosclerotic heart disease of native coronary artery with other forms of angina pectoris (principal)
CPT/HCPCS: 78452; 93017; A9500; J2785; J7040

== ENCOUNTER 2023-02-03 07:58 | Outpatient (CLI) | payer BC ==
[~2023-02-03 07:58] MED LIST changes: +EZET10TA7 PO; +LANS30TA4 PO; +ONDA4TAB12 PO; -ZET10T PO
[2023-02-03 08:53] LABS: BASOPHILS # (AUTO) 0.1 X10'3 (0-0.2); BASOPHILS % (AUTO) 0.9 % (0-1); EOSINOPHILS # (AUTO) 0.4 X10'3 (0-0.9); HEMATOCRIT 47.8 % (42.0-52.0); HEMOGLOBIN 16.2 g/dl (14.0-17.9); LYMPHOCYTES # (AUTO) 1.6 X10'3 (1.1-4.8); LYMPHOCYTES % (AUTO) 24.9 % (21-51); MEAN CORPUSCULAR HEMOGLOBIN 30.5 PG (27.0-31.0); MEAN CORPUSCULAR HGB CONC 33.9 g/dL (33.0-36.5); MEAN PLATELET VOLUME 8.5 FL (7.4-10.4); MONOCYTES # (AUTO) 0.8 X10'3 (0-0.9); MONOCYTES % (AUTO) 12.3 % (2-12); NEUTROPHILS # (AUTO) 3.6 X10'3 (1.8-7.7); NEUTROPHILS % (AUTO) 55.9 % (42-75); PLATELET COUNT 211 X10'3 (140-440); RED BLOOD COUNT 5.32 X10'6 (4.70-6.10); RED CELL DISTRIBUTION WIDTH 13.1 % (11.5-14.5); WHITE BLOOD COUNT 6.4 X10'3 (4.5-11.0)
[2023-02-03 09:34] LABS: ALKALINE PHOSPHATASE 67 IU/L (46-116); ANION GAP 5 (8-16); BILIRUBIN,TOTAL 0.8 MG/DL (0.1-1.0); CHLORIDE 103 MMOL/L (99-107); CHOLESTEROL 186 MG/DL (0-200); LDL CHOLESTEROL 112 MG/DL (50-100); POTASSIUM 4.3 MMOL/L (3.5-5.1); SODIUM 139 MMOL/L (135-145); TOTAL CARBON DIOXIDE 30.9 MMOL/L (24-32); TOTAL PROTEIN 7.5 G/DL (6.4-8.2); TRIGLYCERIDES 60 MG/DL (20-135)
[2023-02-03 09:38] LABS: ALANINE AMINOTRANSFERASE 39 U/L (12-78); ALBUMIN/GLOBULIN RATIO 1.1 (1.1-1.5); ASPARTATE AMINO TRANSFERASE 29 U/L (10-37); BLOOD UREA NITROGEN 9 MG/DL (7-18); BUN/CREATININE RATIO 11.1 (10.0-20.0); CREATININE 0.81 MG/DL (0.60-1.10); GLUCOSE 102 MG/DL (70-104); eGFR > 90 ML/MIN
[2023-02-03 10:07] LABS: THYROID STIMULATING HORMONE 1.33 ulU/ml (0.34-4.50)
[2023-02-03 11:16] LABS: CHOL/HDL RATIO 3.4 (0.00-4.99); HDL CHOLESTEROL 55 MG/DL (35-60)
[2023-02-04 20:05] LABS: CREATININE, URINE 133.3 mg/dL (Not Estab.); MICROALBUMIN,U,RANDOM 6.6 ug/mL (Not Estab.)
== END 2023-02-03 23:59 | disposition home or self-care (01) ==
LOC: LAB 07:58
PROVIDERS: ATTEND Physician Assistant
DX: Z00.00 Encounter for general adult medical examination without abnormal findings (principal); E78.5 Hyperlipidemia, unspecified; I10 Essential (primary) hypertension; I25.10 Atherosclerotic heart disease of native coronary artery without angina pectoris; K21.9 Gastro-esophageal reflux disease without esophagitis; R12 Heartburn; Z12.5 Encounter for screening for malignant neoplasm of prostate
CPT/HCPCS: 36415; 80053; 80061; 82043; 82570; 84439; 84443; 85025

== ENCOUNTER 2023-03-02 07:28 | Outpatient (CLI) | payer BC | END 2023-03-02 23:59 | disposition home or self-care (01) | LOC: RAD 07:28 | PROVIDERS: ATTEND Physician Assistant | DX: R05.9 Cough, unspecified (principal); K21.9 Gastro-esophageal reflux disease without esophagitis | CPT/HCPCS: 71046 ==

== ENCOUNTER 2023-05-20 10:39 | Day surgery (SDC) | payer BC ==
[~2023-05-20] VITALS: Ht 172.7 cm; Wt 75.5 kg
[2023-05-20 15:48] VITALS: BP 146/82; PULSE 65; RESP 18
[2023-05-20] MEDS ORDERED: MECL-231 PO (15:49)
[2023-05-20] MEDS ORDERED: HYDR-3973 PO (15:50)
[2023-05-20] MEDS ORDERED: PANT-47 PO (16:03)
[2023-05-20] MEDS ORDERED: LIDOcaine Viscous 15ml cup ONE (18:05)
[2023-05-20] MEDS ORDERED: fentaNYL/PF 50MCG/1 ML 2ML syringe ONE ×2 (18:17→18:18)
[2023-05-20] MEDS ORDERED: MIDAZolam 1 MG/ML 5ML VIAL ONE (18:18)
[2023-05-20 18:45] VITALS: BP 141/82; PULSE 62; RESP 18; O2SAT 100
[2023-05-20 18:55] VITALS: BP 129/87; PULSE 63; RESP 13; O2SAT 97
[2023-05-20 19:05] VITALS: BP 124/73; PULSE 59; RESP 11; O2SAT 99
[2023-05-20 19:15] VITALS: BP 122/87; PULSE 60; RESP 12; O2SAT 98
== END 2023-05-20 19:15 | disposition home or self-care (01) ==
LOC: GI LAB 10:39
PROVIDERS: ATTEND Internal Medicine Gastroenterology
DX: K21.00 Gastro-esophageal reflux disease with esophagitis, without bleeding (principal); K29.80 Duodenitis without bleeding; K26.9 Duodenal ulcer, unspecified as acute or chronic, without hemorrhage or perforation; K44.9 Diaphragmatic hernia without obstruction or gangrene; I25.10 Atherosclerotic heart disease of native coronary artery without angina pectoris; Z95.5 Presence of coronary angioplasty implant and graft; Z79.899 Other long term (current) drug therapy
CPT/HCPCS: 43239; 99152; J2250; J3010; J7030; Z7512; A4620

== ENCOUNTER 2023-05-26 08:34 | Outpatient (CLI) | payer BC ==
[~2023-05-26 08:34] MED LIST changes: +HYDR-3973 PO; +MECL-231 PO; +PANT-47 PO
[2023-05-26 09:33] LABS: BASOPHILS % (AUTO) 0.7 % (0-1); EOSINOPHILS # (AUTO) 0.4 X10'3 (0-0.9); EOSINOPHILS % (AUTO) 6.3 % (0-6); HEMATOCRIT 44.8 % (42.0-52.0); LYMPHOCYTES # (AUTO) 1.7 X10'3 (1.1-4.8); LYMPHOCYTES % (AUTO) 25.7 % (21-51); MEAN CORPUSCULAR HGB CONC 33.4 g/dL (33.0-36.5); MEAN CORPUSCULAR VOLUME 89.9 FL (78-98); MEAN PLATELET VOLUME 9.1 FL (7.4-10.4); MONOCYTES # (AUTO) 0.8 X10'3 (0-0.9); MONOCYTES % (AUTO) 11.7 % (2-12); NEUTROPHILS # (AUTO) 3.6 X10'3 (1.8-7.7); NEUTROPHILS % (AUTO) 55.6 % (42-75); PLATELET COUNT 219 X10'3 (140-440); RED BLOOD COUNT 4.99 X10'6 (4.70-6.10); WHITE BLOOD COUNT 6.5 X10'3 (4.5-11.0)
[2023-05-26 09:47] LABS: ALANINE AMINOTRANSFERASE 35 U/L (12-78); ALBUMIN 3.8 G/DL (3.4-5.0); ALBUMIN/GLOBULIN RATIO 1.1 (1.1-1.5); ALKALINE PHOSPHATASE 54 IU/L (46-116); ANION GAP 8 (8-16); ASPARTATE AMINO TRANSFERASE 22 U/L (10-37); BILIRUBIN,TOTAL 0.5 MG/DL (0.1-1.0); BLOOD UREA NITROGEN 17 MG/DL (7-18); CHLORIDE 104 MMOL/L (99-107); CHOL/HDL RATIO 2.9 (0.00-4.99); CHOLESTEROL 143 MG/DL (0-200); CREATININE 0.85 MG/DL (0.60-1.10); GLUCOSE 95 MG/DL (70-104); HDL CHOLESTEROL 50 MG/DL (35-60); LDL CHOLESTEROL 71 MG/DL (50-100); SODIUM 139 MMOL/L (135-145); THYROID STIMULATING HORMONE 0.39 ulU/ml (0.34-4.50); TOTAL CARBON DIOXIDE 27.2 MMOL/L (24-32); TOTAL PROTEIN 7.2 G/DL (6.4-8.2); TRIGLYCERIDES 38 MG/DL (20-135); eGFR 90 ML/MIN
[2023-05-26 11:36] LABS: POTASSIUM 4.9 MMOL/L (3.5-5.1)
[2023-05-27 14:00] LABS: CREATININE, URINE 131.2 mg/dL (Not Estab.); MICROALB/CRT, RATIO 3 mg/g creat (0-29); MICROALBUMIN,U,RANDOM 3.7 ug/mL (Not Estab.); TESTOSTERONE, SERUM 593 ng/dL (264-916)
== END 2023-05-26 23:59 | disposition home or self-care (01) ==
LOC: LAB 08:34
PROVIDERS: ATTEND Physician Assistant
DX: Z12.5 Encounter for screening for malignant neoplasm of prostate (principal); E78.5 Hyperlipidemia, unspecified; R53.83 Other fatigue; I10 Essential (primary) hypertension
CPT/HCPCS: 36415; 80053; 80061; 82043; 82570; 84402; 84403; 84439; 84443; 85025

== ENCOUNTER → 2023-10-01 | Outpatient (CLI) | payer BC ==
[~2023-10-01] MED LIST changes: -HYDR-4353 PO; -LANS30TA4 PO; -ONDA4TAB12 PO
[2023-10-01 10:12] LABS: BASOPHILS # (AUTO) 0.1 X10'3 (0-0.2); BASOPHILS % (AUTO) 0.5 % (0-1); EOSINOPHILS # (AUTO) 0.3 X10'3 (0-0.9); EOSINOPHILS % (AUTO) 2.8 % (0-6); HEMATOCRIT 46.1 % (42.0-52.0); HEMOGLOBIN 15.6 g/dl (14.0-17.9); LYMPHOCYTES # (AUTO) 1.8 X10'3 (1.1-4.8); LYMPHOCYTES % (AUTO) 19.1 % (21-51); MEAN CORPUSCULAR HEMOGLOBIN 29.8 PG (27.0-31.0); MEAN CORPUSCULAR HGB CONC 33.9 g/dL (33.0-36.5); MEAN PLATELET VOLUME 8.1 FL (7.4-10.4); MONOCYTES # (AUTO) 1.2 X10'3 (0-0.9); NEUTROPHILS % (AUTO) 64.6 % (42-75); PLATELET COUNT 246 X10'3 (140-440); RED BLOOD COUNT 5.24 X10'6 (4.70-6.10); RED CELL DISTRIBUTION WIDTH 13.4 % (11.5-14.5); WHITE BLOOD COUNT 9.3 X10'3 (4.5-11.0)
[2023-10-01 10:17] LABS: ALANINE AMINOTRANSFERASE 45 U/L (12-78); ALBUMIN 3.7 G/DL (3.4-5.0); ALBUMIN/GLOBULIN RATIO 0.9 (1.1-1.5); ALKALINE PHOSPHATASE 72 IU/L (46-116); ANION GAP 7 (8-16); ASPARTATE AMINO TRANSFERASE 25 U/L (10-37); BILIRUBIN,TOTAL 0.8 MG/DL (0.1-1.0); BLOOD UREA NITROGEN 11 MG/DL (7-18); BUN/CREATININE RATIO 12.8 (10.0-20.0); CALCIUM 9.2 MG/DL (8.5-10.1); CHLORIDE 102 MMOL/L (99-107); CREATININE 0.86 MG/DL (0.60-1.10); FREE T4 (FREE THYROXINE) 0.92 NG/DL (0.73-1.40); GLUCOSE 111 MG/DL (70-104); POTASSIUM 4.1 MMOL/L (3.5-5.1); SODIUM 138 MMOL/L (135-145); THYROID STIMULATING HORMONE 1.07 ulU/ml (0.34-4.50); TOTAL CARBON DIOXIDE 29.5 MMOL/L (24-32); TOTAL PROTEIN 7.8 G/DL (6.4-8.2); eGFR 89 ML/MIN
== END | disposition home or self-care (01) ==
LOC: RAD 08:51
PROVIDERS: ATTEND Physician Assistant
DX: K76.0 Fatty (change of) liver, not elsewhere classified (principal); K76.89 Other specified diseases of liver; N20.0 Calculus of kidney; N28.1 Cyst of kidney, acquired; R10.9 Unspecified abdominal pain; K59.00 Constipation, unspecified
CPT/HCPCS: 36415; 76700; 80053; 84153; 84439; 84443; 85025

== ENCOUNTER 2024-05-09 12:25 | Emergency (ER) | payer BC ==
[~2024-05-09] VITALS: Ht 172.7 cm; Wt 70.3 kg
[~2024-05-09 12:25] MED LIST changes: +ATOR-429 PO; -ATOR80TA PO
[2024-05-09 13:12] LABS: ANION GAP 10 (8-16); BLOOD UREA NITROGEN 11 MG/DL (7-18); BUN/CREATININE RATIO 14.9 (10.0-20.0); CALCIUM 8.8 MG/DL (8.5-10.1); CHLORIDE 100 MMOL/L (99-107); CREATININE 0.74 MG/DL (0.60-1.10); GLUCOSE 92 MG/DL (70-104); POTASSIUM 4.7 MMOL/L (3.5-5.1); SODIUM 135 MMOL/L (135-145); TOTAL CARBON DIOXIDE 25.5 MMOL/L (24-32); eCRCL 95 ML/MIN; eGFR > 90 ML/MIN
[2024-05-09 13:20] LABS: BASOPHILS % (AUTO) 0.4 % (0-1); EOSINOPHILS # (AUTO) 0.1 X10'3 (0-0.9); EOSINOPHILS % (AUTO) 0.7 % (0-6); HEMATOCRIT 45.9 % (42.0-52.0); HEMOGLOBIN 15.7 g/dl (14.0-17.9); LYMPHOCYTES # (AUTO) 1.3 X10'3 (1.1-4.8); LYMPHOCYTES % (AUTO) 13.3 % (21-51); MEAN CORPUSCULAR HGB CONC 34.3 g/dL (33.0-36.5); MEAN CORPUSCULAR VOLUME 90.3 FL (78-98); MEAN PLATELET VOLUME 8.3 FL (7.4-10.4); MONOCYTES # (AUTO) 0.7 X10'3 (0-0.9); MONOCYTES % (AUTO) 7.6 % (2-12); NEUTROPHILS # (AUTO) 7.4 X10'3 (1.8-7.7); PLATELET COUNT 263 X10'3 (140-440); RED BLOOD COUNT 5.08 X10'6 (4.70-6.10); RED CELL DISTRIBUTION WIDTH 12.8 % (11.5-14.5); WHITE BLOOD COUNT 9.5 X10'3 (4.5-11.0)
[2024-05-09] MEDS: LORazepam 2 mg/ml vial IV ONE (13:21)
[2024-05-09 13:36] LABS: APTT 29 SECONDS (22-32); PROTHROMBIN TIME 10.9 SECONDS (9.0-12.0)
[2024-05-09] MEDS ORDERED: iohexol 350MG/ML 100ml bottle IV ONE (14:10)
[2024-05-09 17:19] LABS: C-REACTIVE PROTEIN 0.47 MG/DL (0.0-0.5)
[2024-05-09 17:45] VITALS: PULSE 73
[2024-05-09] MEDS ORDERED: CLOP-32 PO (18:29)
[2024-05-09 18:40] VITALS: BP 148/87; RESP 18; TEMP 98; O2SAT 100
== END 2024-05-09 18:44 | disposition home or self-care (01) ==
LOC: ER 12:26
DX: H34.12 Central retinal artery occlusion, left eye (principal); I25.10 Atherosclerotic heart disease of native coronary artery without angina pectoris; E78.00 Pure hypercholesterolemia, unspecified; I10 Essential (primary) hypertension; Z79.899 Other long term (current) drug therapy; Z79.82 Long term (current) use of aspirin
CPT/HCPCS: 36415; 70496; 70498; 70544; 70551; 80048; 85025; 85610; 85651; 85730; 86140; 93005; 96374; 99285; J2060; Q9967

== ENCOUNTER 2024-05-18 11:44 | Outpatient (CLI) | payer BC ==
[~2024-05-18 11:44] MED LIST changes: +CLOP-32 PO
== END 2024-05-18 23:59 | disposition home or self-care (01) ==
LOC: CARD DIAG 11:44
PROVIDERS: ATTEND Internal Medicine Interventional Cardiology
DX: I08.8 Other rheumatic multiple valve diseases (principal); R06.02 Shortness of breath; R07.9 Chest pain, unspecified
CPT/HCPCS: 93306

== ENCOUNTER 2024-05-23 09:25 | Emergency (ER) | payer BC ==
[~2024-05-23] VITALS: Ht 172.7 cm; Wt 70.5 kg
[2024-05-23 09:29] VITALS: TEMP 98
[2024-05-23 10:08] LABS: BASOPHILS % (AUTO) 0.5 % (0-1); EOSINOPHILS # (AUTO) 0.1 X10'3 (0-0.9); EOSINOPHILS % (AUTO) 1.5 % (0-6); HEMATOCRIT 46.7 % (42.0-52.0); HEMOGLOBIN 15.9 g/dl (14.0-17.9); LYMPHOCYTES # (AUTO) 1.5 X10'3 (1.1-4.8); LYMPHOCYTES % (AUTO) 23.4 % (21-51); MEAN CORPUSCULAR HEMOGLOBIN 30.5 PG (27.0-31.0); MEAN CORPUSCULAR HGB CONC 33.9 g/dL (33.0-36.5); MEAN CORPUSCULAR VOLUME 89.9 FL (78-98); MEAN PLATELET VOLUME 8.3 FL (7.4-10.4); MONOCYTES # (AUTO) 0.8 X10'3 (0-0.9); MONOCYTES % (AUTO) 12.2 % (2-12); NEUTROPHILS # (AUTO) 4.1 X10'3 (1.8-7.7); NEUTROPHILS % (AUTO) 62.4 % (42-75); PLATELET COUNT 257 X10'3 (140-440); RED CELL DISTRIBUTION WIDTH 12.8 % (11.5-14.5); WHITE BLOOD COUNT 6.5 X10'3 (4.5-11.0)
[2024-05-23 10:22] LABS: ALANINE AMINOTRANSFERASE 45 U/L (12-78); ALBUMIN 4.1 G/DL (3.4-5.0); ALBUMIN/GLOBULIN RATIO 1.1 (1.1-1.5); ALKALINE PHOSPHATASE 71 IU/L (46-116); ANION GAP 7 (8-16); ASPARTATE AMINO TRANSFERASE 34 U/L (10-37); BILIRUBIN,TOTAL 0.6 MG/DL (0.1-1.0); BLOOD UREA NITROGEN 13 MG/DL (7-18); BUN/CREATININE RATIO 18.3 (10.0-20.0); CALCIUM 9.1 MG/DL (8.5-10.1); CHLORIDE 103 MMOL/L (99-107); CREATININE 0.71 MG/DL (0.60-1.10); GLUCOSE 131 MG/DL (70-104); POTASSIUM 4.3 MMOL/L (3.5-5.1); SODIUM 137 MMOL/L (135-145); TOTAL CARBON DIOXIDE 26.8 MMOL/L (24-32); TOTAL PROTEIN 7.8 G/DL (6.4-8.2); eCRCL 99 ML/MIN; eGFR > 90 ML/MIN
[2024-05-23 10:30] LABS: PRO BRAIN NATRIURETIC PEPTIDE 53 PG/ML (0-125)
[2024-05-23 13:02] VITALS: BP 148/79; PULSE 84; RESP 18; O2SAT 98
== END 2024-05-23 13:04 | disposition home or self-care (01) ==
LOC: ER 09:26
DX: R07.89 Other chest pain (principal); I25.10 Atherosclerotic heart disease of native coronary artery without angina pectoris; E78.00 Pure hypercholesterolemia, unspecified; I10 Essential (primary) hypertension; Z95.5 Presence of coronary angioplasty implant and graft; Z79.82 Long term (current) use of aspirin
CPT/HCPCS: 36415; 71045; 80053; 83880; 84484; 85025; 93005; 99285

== ENCOUNTER 2024-07-11 11:24 | Day surgery (SDC) | payer BC, MEDICARE ==
[~2024-07-11] VITALS: Ht 172.7 cm; Wt 70.1 kg
[2024-07-11] MEDS ORDERED: normal saline 1000ml 1,000 ML IV SCH (11:55)
[2024-07-11] MEDS ORDERED: OMEP40CA21 PO (12:18)
[2024-07-11] MEDS ORDERED: CLOP-32 PO (12:18)
[2024-07-11] MEDS ORDERED: LIDOcaine 1% W/epiNEPHrine 1:100,000 20ml vial ONE (15:06)
[2024-07-11] MEDS ORDERED: midazolam 1 mg/ML 2ml injection ONE ×2 (15:15→15:33)
[2024-07-11] MEDS ORDERED: fentaNYL/PF 50MCG/1 ML 2ML syringe ONE (15:15)
[2024-07-11 15:34] VITALS: BP 149/88; PULSE 67; RESP 16; TEMP 97.8; O2SAT 97
[2024-07-11 15:41] VITALS: RESP 16; O2SAT 97
[2024-07-11 15:53] VITALS: BP 135/76; PULSE 85; RESP 19; O2SAT 96
[2024-07-11 16:08] VITALS: BP 148/77; PULSE 94; RESP 14; O2SAT 96
[2024-07-11 16:23] VITALS: BP 150/91; PULSE 97; RESP 20; O2SAT 96
[2024-07-11 16:38] VITALS: BP 121/86; PULSE 97; RESP 21; O2SAT 97
== END 2024-07-11 17:00 | disposition home or self-care (01) ==
LOC: SSTAY O 11:24
PROVIDERS: ATTEND Student in an Organized Health Care Education/Training Program
DX: H34.12 Central retinal artery occlusion, left eye (principal); I45.10 Unspecified right bundle-branch block; I25.10 Atherosclerotic heart disease of native coronary artery without angina pectoris; I10 Essential (primary) hypertension; E78.5 Hyperlipidemia, unspecified; Z88.8 Allergy status to other drugs, medicaments and biological substances; Z79.899 Other long term (current) drug therapy; Z98.890 Other specified postprocedural states
CPT/HCPCS: 33285; 93005; 99152; C1764; J2250; J3010; J3490; J7030; A6258; A6449

== ENCOUNTER 2024-08-28 07:54 | Day surgery (SDC) | payer BC, MEDICARE ==
[~2024-08-28] VITALS: Ht 175.3 cm; Wt 70.5 kg
[2024-08-28] VITALS (13 sets, daily range): BP systolic 115–177; BP diastolic 59–107; PULSE 91–105; RESP 10–22; O2SAT 31–100
[~2024-08-28 07:54] MED LIST changes: -ASPI-1265 PO; +EZET10TA48 PO; +LANS30CA56 PO; -MECL-231 PO; -PANT-47 PO
[2024-08-28] MEDS ORDERED: LIDOcaine 2% Viscous 15ml cup ONE (10:01)
[2024-08-28] MEDS ORDERED: MIDAZolam 1 MG/ML 5ML VIAL ONE (10:35)
[2024-08-28] MEDS ORDERED: fentaNYL/PF 50MCG/1 ML 2ML syringe ONE ×2 (10:35→10:50)
[2024-08-28] MEDS ORDERED: simethicone 40mg/0.6ml oral drops 30ml ONE (10:38)
--- NOTE | 2024-08-29 16:36 | PATHOLOGY REPORT ---
[facility] [address] [place] [address] SURGICAL PATHOLOGY REPORT CaseNumber: [id number] Surgeon:José Miguel Mccall M.D. CLINICAL INFORMATION CLINICAL INFORMATION: Heartburn, suspected gastro-esophageal reflux disease. DIAGNOSIS DIAGNOSIS: A.ESOPHAGUS, DISTAL; BIOPSY - GASTROESOPHAGEAL JUNCTION MUCOSA WITH ISOLATED INTESTINAL METAPLASIA (SEE COMMENT), MILD GASTR OESOPHAGEAL REFLUX DISEASE, AND MILD CHRONIC GASTRITIS. - NEGATIVE FOR DYSPLASIA AND MALIGNANCY. DIAGNOSIS: B.STOMACH; BIOPSY - POLYPOID SHAPED PROJECTION OF PARIETAL CELL HYPERPLASIA INCLUDING FOCAL DILATED GLANDS AND MIN IMAL CHRONIC GASTRITIS. - NEGATIVE FOR DYSPLASIA AND MALIGNANCY. - IMMUNOHISTOCHEMICAL STAIN NEGATIVE FOR HELICOBACTER PYLORI. DIAGNOSIS: C.COLON, TRANSVERSE; BIOPSY - SMALL BENIGN LYMPHOID AGGREGATE. - NEGATIVE FOR DYSPLASIA AND MALIGNANCY. 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 There is no evidence of dys plasia or malignancy within the specimen. 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 There is no evidence of dys plasia or malignancy within the specimen. 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 There is no evidence of dys plasia or malignancy within the specimen. MICROSCOPIC DESCRIPTION A. ESOPHAGUS, DISTAL MICROSCOPIC DESCRIPTION: Microscopic examination is performed on one H&E stained slide. Present is ga stroesophageal junction mucosa with isolated intestinal metaplasia. There is background squamous bear ing esophageal mucosa with scattered eosinophils, elongation of the rete pegs, and focal basal hyperp lasia. Within the gastric mucosa, there is mild chronic inflammation including lymphocytes and plasma cells. There is no evidence of viral effect, dysplasia, or malignancy. B. STOMACH MICROSCOPIC DESCRIPTION: Performed. C. COLON, TRANSVERSE MICROSCOPIC DESCRIPTION: Performed. (bb) GROSS DESCRIPTION A. ESOPHAGUS, DISTAL GROSS DESCRIPTION: Received in a container of formalin labeled with the patient's name, number, and " distal esophagus BX" is a 0.2 cm piece of bowens tissue. The specimen is entirely submitted as A1. The t tomeka at which the specimen was removed was 1048. The time at which the specimen was placed in formalin was 1049. B. STOMACH GROSS DESCRIPTION: Received in a container of formalin labeled with the patient's name, number, and " gastric polyp" is a 0.4 x 0.3 x 0.1 cm piece of bowens tissue. The specimen is entirely submitted as B1. The time at which the specimen was removed was 1050. The time at which the specimen was placed in fo rmalin was 1055. C. COLON, TRANSVERSE GROSS DESCRIPTION: Received in a container of formalin labeled with the patient's name, number, and " transverse colon polyp" is a 0.4 x 0.2 x 0.1 cm piece of bowens tissue. The specimen is entirely submitt ed as C1. The time at which the specimen was removed was 1105. The time at which the specimen was sebastian ayaz in formalin was 1106. Electronically signed by: Kemal Vázquez D.O. 08/29/2024 4:09:00 PM
== END 2024-08-28 11:55 | disposition home or self-care (01) ==
LOC: GI LAB 07:54
PROVIDERS: ATTEND Internal Medicine Gastroenterology
DX: Z12.11 Encounter for screening for malignant neoplasm of colon (principal); K63.5 Polyp of colon; K57.30 Diverticulosis of large intestine without perforation or abscess without bleeding; K64.8 Other hemorrhoids; K31.7 Polyp of stomach and duodenum; K44.9 Diaphragmatic hernia without obstruction or gangrene; R12 Heartburn; K22.89 Other specified disease of esophagus; K29.50 Unspecified chronic gastritis without bleeding; K21.9 Gastro-esophageal reflux disease without esophagitis
CPT/HCPCS: 43239; 43251; 45385; 99152; 99153; J2250; J3010; J7030; Z7512; 45380; A4615; A4620; C1889

== ENCOUNTER 2024-10-13 07:12 | Outpatient (CLI) | payer BC, MEDICARE ==
[2024-10-13 08:03] LABS: BASOPHILS % (AUTO) 0.6 % (0-1); EOSINOPHILS # (AUTO) 0.2 X10'3 (0-0.9); EOSINOPHILS % (AUTO) 3.1 % (0-6); HEMATOCRIT 45.1 % (42.0-52.0); HEMOGLOBIN 15.4 g/dl (14.0-17.9); LYMPHOCYTES # (AUTO) 1.5 X10'3 (1.1-4.8); LYMPHOCYTES % (AUTO) 23.6 % (21-51); MEAN CORPUSCULAR HGB CONC 34.2 g/dL (33.0-36.5); MEAN CORPUSCULAR VOLUME 87.7 FL (78-98); MEAN PLATELET VOLUME 8.4 FL (7.4-10.4); MONOCYTES # (AUTO) 0.8 X10'3 (0-0.9); MONOCYTES % (AUTO) 11.9 % (2-12); NEUTROPHILS % (AUTO) 60.8 % (42-75); PLATELET COUNT 208 X10'3 (140-440); RED BLOOD COUNT 5.14 X10'6 (4.70-6.10); RED CELL DISTRIBUTION WIDTH 12.9 % (11.5-14.5); WHITE BLOOD COUNT 6.5 X10'3 (4.5-11.0)
[2024-10-13 08:19] LABS: ALANINE AMINOTRANSFERASE 35 U/L (12-78); ALBUMIN 3.9 G/DL (3.4-5.0); ALBUMIN/GLOBULIN RATIO 1.2 (1.1-1.5); ALKALINE PHOSPHATASE 68 IU/L (46-116); ANION GAP 10 (8-16); ASPARTATE AMINO TRANSFERASE 29 U/L (10-37); BILIRUBIN,TOTAL 1.1 MG/DL (0.1-1.0); BLOOD UREA NITROGEN 11 MG/DL (7-18); BUN/CREATININE RATIO 14.1 (10.0-20.0); CALCIUM 8.6 MG/DL (8.5-10.1); CHLORIDE 103 MMOL/L (99-107); CHOL/HDL RATIO 3.3 (0.00-4.99); CHOLESTEROL 158 MG/DL (0-200); CREATININE 0.78 MG/DL (0.60-1.10); GLUCOSE 102 MG/DL (70-104); HDL CHOLESTEROL 48 MG/DL (35-60); LDL CHOLESTEROL 90 MG/DL (50-100); SODIUM 140 MMOL/L (135-145); TOTAL CARBON DIOXIDE 26.9 MMOL/L (24-32); TOTAL PROTEIN 7.2 G/DL (6.4-8.2); TRIGLYCERIDES 59 MG/DL (20-135); eGFR > 90 ML/MIN
[2024-10-14 08:12] LABS: % FREE PSA 26.4 % (.); PROSTATE SPECIFIC AG, SERUM 1.4 ng/mL (0.0-4.0); PSA, FREE 0.37 ng/mL
== END 2024-10-13 23:59 | disposition home or self-care (01) ==
LOC: LAB 07:12
PROVIDERS: ATTEND Family Medicine
DX: H34.9 Unspecified retinal vascular occlusion (principal); I25.10 Atherosclerotic heart disease of native coronary artery without angina pectoris; K22.70 Barrett's esophagus without dysplasia; E78.2 Mixed hyperlipidemia; R39.12 Poor urinary stream
CPT/HCPCS: 36415; 80053; 80061; 81256; 84153; 84154; 85025; 86140

== ENCOUNTER 2024-10-30 09:34 | Outpatient (CLI) | payer BC, MEDICARE ==
--- NOTE | 2024-10-30 12:26 | RADIOLOGY REPORT ---
Technique: Real-time ultrasound imaging of the abdomen was performed with grayscale and color Doppler . Indication: HEPATIC STEATOSIS Comparison: US ULTRASOUND OF ABDOMEN on DOS: 10/01/23 Findings: Liver measures 15.4 cm. It is increased in echogenicity and echotexture without focal mass. Portal v ein is normal in caliber and demonstrates normal hepatopetal flow. There is a 2.6 cm right hepatic lo be cyst. There is an 8 mm hepatic cyst. Left hepatic lobe cyst measuring 1.4 cm. Left hepatic lobe cy st measuring 6 mm. Gallbladder demonstrates no evidence for cholelithiasis. There is no pericholecystic fluid. The wall thickness is normal. The common bile duct measures 2 mm. No intrahepatic biliary ductal dilatation. The right kidney measures 9.8 cm. There is no hydronephrosis or sonographic evidence of nephrolithias is. Right renal cortical thinning and echogenic appearance. The visualized portion of the pancreas is unremarkable. The visualized portion of the IVC is unremarkable. Impression: Echogenic liver which can be seen with hepatic steatosis, cirrhosis. Multiple hepatic cysts. Right renal cortical thinning with echogenic appearance, which can be seen with medical renal disease .
== END 2024-10-30 23:59 | disposition home or self-care (01) ==
LOC: US 09:34
PROVIDERS: ATTEND Family Medicine
DX: K76.0 Fatty (change of) liver, not elsewhere classified (principal); K76.89 Other specified diseases of liver
CPT/HCPCS: 76700

== ENCOUNTER 2025-03-19 10:39 | Outpatient (CLI) | payer BC, MEDICARE ==
[~2025-03-19 10:39] MED LIST changes: -EZET10TA48 PO; +EZET10TA80 PO
[2025-03-19 11:06] LABS: MEAN PLATELET VOLUME 8.0 FL (7.4-10.4); RED CELL DISTRIBUTION WIDTH 12.9 % (11.5-14.5)
[2025-03-19 11:25] LABS: CREATININE 0.99 MG/DL (0.60-1.10); TOTAL CARBON DIOXIDE 30.0 MMOL/L (24-32); eGFR 75 ML/MIN
[2025-03-20 08:12] LABS: TESTOSTERONE, SERUM 362 ng/dL (264-916)
== END 2025-03-19 23:59 | disposition home or self-care (01) ==
LOC: LAB 10:39
PROVIDERS: ATTEND Family Medicine
DX: R53.83 Other fatigue (principal)
CPT/HCPCS: 36415; 80053; 84402; 84403; 84439; 84443; 85025